=== PATIENT | male | born 1975 | race Caucasian/White ===

== ENCOUNTER 2023-11-23 13:40 | Emergency (ER) | payer OTHER, SELFPAY ==
[2023-11-23] VITALS (13 sets, daily range): BP systolic 142–195; BP diastolic 64–119; PULSE 73; TEMP 36.6; O2SAT 93–99; BMI 27.8
--- NOTE | 2023-11-23 14:03 | CT_ITS ---
The [address] [address] Patient Name: JEANNE AGUILERA MRN: [id number] date: 1975 Sex: M Assigned Patient Location: ER Current Patient Location: ER Accession/Order Number: [id number] Exam Date: 11/23/2023 14:16 Report Date: 11/23/2023 14:44 At the request of: BERNARD GREENFIELD Procedure: CT head/brain wo con EXAM: CT head/brain wo con HISTORY: Headache, history of hydrocephalus COMPARISON: CT brain 05/29/2021, 08/17/2015. TECHNIQUE: Axial CT scans through the head were obtained without IV contrast administration. Dose reduction techniques were achieved by using: automated exposure control and/or adjustment of mA and /or kV according to patient size and/or use of iterative reconstruction technique. FINDINGS: There is no acute intracranial hemorrhage or abnormal extra-axial fluid collection. No mass effect or midline shift is seen. There is no evidence of large acute territorial infarction. There is dilatation of ventricular system including the fourth ventricle, grossly unchanged since 08/17/2015. There is no evidence of transependymal CSF shift. To the limit of CT, the posterior fossa appears unremarkable. The calvaria and extra cranial soft tissues are unremarkable. The visualized orbits show no abnormality. The visualized paranasal sinuses show no air-fluid level. Mastoid air cells are clear. CT/CT head/brain wo con IMPRESSION: No acute intracranial process. Mild dilatation of the ventricular system, grossly unchanged since 08/17/2015. Electronically authenticated by: KUMAR PERRY Date: 11/23/2023 14:44
--- NOTE | 2023-11-23 14:03 | ED_ITS ---
HPI HPI - General Adult General Chief complaint: Headache Stated complaint: HEADACHE Time Seen by Provider: 11/23/23 13:43 Source: patient Mode of arrival: walk-in Limitations: no limitations History of Present Illness HPI narrative: 47-year-old male presents for headache. He has had this frontal headache which has been continuous for a few weeks. He is worried about hydrocephalus. He had it about a year ago and was seeing a neurologist. They wanted to do a procedure but he was afraid and did not have it done. He is worried about the fluid coming back. No trauma fever or stiff neck or localized weakness. No vomiting. Related Data Previous Rx's ?Medication ?Instructions ?Recorded xxfxrvktwy-xzmfjodgyvfme-zzratxgb 1 cap PO Q6H PRN pain #20 caps 11/23/23 50 mg-300 mg-40 mg capsule (Fioricet) Allergies Allergy/AdvReac Type Severity Reaction Status Date / Time Penicillins Allergy Intermediate Verified 11/23/23 13:49 Opioid HPI Opioid Management Most Recent Opioid Data: Last Pain Scale 9 11/23/23 13:57 Last ED Pain Assessment 11/23/23 14:32 Review of Systems ROS Narrative A ten point review of systems is negative except as noted above. Exam Narrative Exam Narrative: Nurses note and vital signs reviewed and patient is not hypoxic. General: The patient appears well and in no apparent distress. Patient is resting comfortably on cart. Skin: Warm, dry, no pallor noted. There is no rash noted. Head: Normocephalic, atraumatic Eye: Normal conjunctiva, no drainage Ears, Nose, Mouth, and Throat: oral mucosa is moist. Nares patent., Neck supple Cardiovascular: Regular Rate and Rhythm Respiratory: Patient is in no distress, no accessory muscle use, lungs are clear to auscultation, no wheezing, rales or rhonchi Back: non-tender GI: Soft and nontender Musculoskeletal: The patient has no evidence of calf tenderness, no pitting edema, symmetrical pulses noted bilaterally Neurological: A&O x4, normal speech, upper and lower extremity strength intact Psychiatric: Cooperative Constitutional Vital Signs, click to edit/add: Last Vital Signs Temp 97.8 F 11/23/23 13:45 Pulse 73 11/23/23 13:45 Resp 18 11/23/23 13:45 BP 142/64 H 11/23/23 14:31 Pulse Ox 96 11/23/23 14:50 O2 Del Method Room Air 11/23/23 13:57 Course Vital Signs Vital signs: Vital Signs Temperature 97.8 F 11/23/23 13:45 Pulse Rate 73 11/23/23 13:45 Respiratory Rate 18 11/23/23 13:45 Blood Pressure 173/84 H 11/23/23 13:45 Pulse Oximetry 98 11/23/23 13:45 Oxygen Delivery Method Room Air 11/23/23 13:45 Temperature 97.8 F 11/23/23 13:45 Pulse Rate 73 11/23/23 13:45 Respiratory Rate 18 11/23/23 13:45 Blood Pressure 142/64 H 11/23/23 14:31 Pulse Oximetry 96 11/23/23 14:50 Oxygen Delivery Method Room Air 11/23/23 13:57 Medical Decision Making MDM Narrative Medical decision making narrative: CT scan shows just minimal amount of increased fluid, he will follow-up with his neurologist and he will be treated symptomatically. Treatment diagnosis and follow-up were discussed with the patient. Differential Diagnosis Differential Diagnosis: Hydrocephalus, tension headache, intracranial hemorrhage Lab Data Lab results reviewed: Yes I reviewed the patient's lab results Labs: Lab Results 11/23/23 Range/Units 13:55 WBC 7.8 (4.0-11.0) 10^3/uL RBC 4.79 (4.70-6.10) 10^6/uL Hgb 14.5 (14.0-18.0) g/dL Hct 42.5 (42.0-54.0) % MCV 88.7 (80.0-94.0) fL MCH 30.3 (25.9-34.0) pg MCHC 34.1 (29.9-35.2) g/dL RDW 12.5 (11.0-15.0) % Plt Count 191 (150-450) 10^3/uL MPV 13.4 (9.5-13.5) fL Neut % (Auto) 66.7 (43.0-75.0) % Lymph % (Auto) 24.9 (20.5-60.0) % [place] % (Auto) 5.0 (1.7-12.0) % Eos % (Auto) 1.8 (0.9-7.0) % Baso % (Auto) 1.2 (0.2-2.0) % Neut # (Auto) 5.2 (1.4-6.5) 10^3/uL Lymph # (Auto) 1.9 (1.2-3.8) 10^3/uL [place] # (Auto) 0.4 (0.3-0.8) 10^3/uL Eos # (Auto) 0.1 (0.0-0.7) 10^3/uL Baso # (Auto) 0.1 (0.0-0.1) 10^3/uL Abs Immat Gran (auto) 0.03 (0.00-0.03) 10^3/uL Imm/Tot Granulo (auto) 0.4 (0.0-0.5) % Sodium 142 (136-145) mmol/L Potassium 3.6 (3.5-5.1) mmol/L Chloride 106 (98-107) mmol/L Carbon Dioxide 27.6 (21.0-32.0) mmol/L Anion Gap 12.0 BUN 10.0 (7.0-18.0) mg/dL Creatinine 0.94 (0.70-1.30) mg/dL Est GFR ( Amer) >60 (>=60) Est GFR (Non-Af Amer) >60 (>=60) BUN/Creatinine Ratio 10.6 Glucose 140 H (74-106) mg/dL Calcium 9.2 (8.5-10.1) mg/dL Imaging Data CT scan - head: Radiologist's impression: ITS Impressions Head CT 11/23/23 14:03 IMPRESSION: No acute intracranial process. Mild dilatation of the ventricular system, grossly unchanged since 08/17/2015. Electronically authenticated by: KUMAR PERRY Date: 11/23/2023 14:44 Discharge Plan Discharge Stand Alone Forms: Portal Instructions Chief Complaint: Headache Clinical Impression: Headache Patient Disposition: Home, Self-Care Time of Disposition Decision: 14:59 Condition: Good Mode of Transportation: Private Vehicle Prescriptions / Home Meds: New orfcbqzxcm-szujtuoivekrl-wwtf [Fioricet] 50-300-40 mg capsule 1 cap PO Q6H PRN (Reason: pain) Qty: 20 0RF Print Language: [place] Instructions: Acute Headache (ED) Additional Instructions: Follow-up with your neurologist Referrals: Physician,Non-Staff, MD [Primary Care Provider] - 1 week
[2023-11-23 14:13] LABS: Basophils Absolute Auto 0.1 10^3/uL (0.0-0.1); Basophils Percent Auto 1.2 % (0.2-2.0); Eosinophils Absolute Auto 0.1 10^3/uL (0.0-0.7); Eosinophils Percent Auto 1.8 % (0.9-7.0); Hematocrit 42.5 % (42.0-54.0); Hemoglobin 14.5 g/dL (14.0-18.0); Immature Granulocytes Abs Auto 0.03 10^3/uL (0.00-0.03); Immature Granulocytes Pct Auto 0.4 % (0.0-0.5); Lymphocytes Absolute Auto 1.9 10^3/uL (1.2-3.8); Lymphocytes Percent Auto 24.9 % (20.5-60.0); Mean Corpuscular HGB Conc 34.1 g/dL (29.9-35.2); Mean Corpuscular Hemoglobin 30.3 pg (25.9-34.0); Mean Corpuscular Volume 88.7 fL (80.0-94.0); Mean Platelet Volume 13.4 fL (9.5-13.5); Monocytes Absolute Auto 0.4 10^3/uL (0.3-0.8); Neutrophils Absolute Auto 5.2 10^3/uL (1.4-6.5); Neutrophils Percent Auto 66.7 % (43.0-75.0); Platelet Count 191 10^3/uL (150-450); Red Blood Count 4.79 10^6/uL (4.70-6.10); Red Cell Distribution Width 12.5 % (11.0-15.0); White Blood Count 7.8 10^3/uL (4.0-11.0)
[2023-11-23 14:21] LABS: BUN Creatinine Ratio 10.6; Calcium 9.2 mg/dL (8.5-10.1); Carbon Dioxide 27.6 mmol/L (21.0-32.0); Chloride 106 mmol/L (98-107); Estimated GFR (African America >60 (>=60); Estimated GFR (Non-African Ame >60 (>=60); Glucose 140 mg/dL (74-106); Potassium 3.6 mmol/L (3.5-5.1); Sodium 142 mmol/L (136-145)
[2023-11-23] MEDS: KETOROLAC TROMETHAMINE 30 MG/ML VIAL IVP (15:02)
== END 2023-11-23 15:16 | disposition home or self-care (01) ==
PROVIDERS: Emergency Provider Emergency Medicine
DX: R51.9 Headache, unspecified (principal)
CPT/HCPCS: 36415; 70450; 80048; 85025; 96374; 99285